=== PATIENT | female | born 1960 | race Caucasian/White ===

== ENCOUNTER 2020-02-22 22:09 | Inpatient (IN) | payer OTHER ==
[~2020-02-22] VITALS: Ht 154.9 cm; Wt 52.3 kg
[2020-02-22 22:45] VITALS: BP 138/74
[2020-02-22] MEDS ORDERED: C-10001000 MG PO (22:59)
[2020-02-22] MEDS ORDERED: PROAIR HFA8.5 GM INH (22:59)
[2020-02-22] MEDS ORDERED: TESSALON PERLE100 MG PO (23:04)
[2020-02-22] MEDS ORDERED: WELLBUTRIN SR200 MG PO (23:04)
[2020-02-22] MEDS ORDERED: CALCIUM CITRAT200 MG PO (23:05)
[2020-02-22] MEDS ORDERED: VALIUM2 MG PO (23:05)
[2020-02-22] MEDS ORDERED: MAG-OXIDE400 MG PO (23:06)
[2020-02-22] MEDS ORDERED: DAILY VITE1 EACH PO (23:07)
[2020-02-22] MEDS ORDERED: ZYPREXA2.5 MG PO (23:08)
[2020-02-22] MEDS ORDERED: VITAMIN A8000 UNI1 PO (23:08)
[2020-02-22] MEDS ORDERED: VITAMIN B-6100 MG PO (23:08)
[2020-02-22] MEDS ORDERED: ZINC50 M2 PO (23:09)
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
--- NOTE | 2020-02-23 03:34 | NUR ---
PATIENT CAME TO NURSE STATION AROUND 2AM TO SEE WHAT TIME IT WAS AND SHE WENT BACK TO HER ROOM. ON NEXT ROUNDS, PATIENT WAS IN ROOM LAYING ON A BLANKET ON THE FLOOR AND USED ANOTHER ONE TO COVER UP WITH. SHE STATES SHE WAS PRAYING. SHE FEELS SAFER WHEN SHE PRAYS AND THE PRAYER KEEPS SATAN FROM TAUNTING HER. PATIENT HAS STAYED ON FLOOR AND IS SLEEPING. RESPIRATIONS EVEN AND REGULAR. WILL CONTINUE TO MONITOR.
--- NOTE | 2020-02-23 03:58 | NUR ---
PATIENT CAME OUT IN ANDRE TO NURSE STATION AND THEN WALKED BACK TO HER ROOM. I WENT TO SEE IF SHE NEEDED ANYTHING. SHE WANTED TO KNOW WHAT TIME IT WAS. I TOLD HER IT WAS 0355. I ASKED HER IF SHE WAS GOING TO SLEEP ON THE FLOOR OR THE BED NOW. SHE STATES THAT SHE IS GOING TO DO A FEW EXERCISES AND THEN GO BACK TO HER BED. PATIENT REMAINS COOPERATIVE. WILL CONTINUE TO MONITOR.
--- NOTE | 2020-02-23 06:44 | NUR ---
PATIENT UP TO NURSES STATION SAYING THAT SOMEONE IS GOING TO DROP OFF SOME OF HER BELONGINGS. SHE HAS NOT SPOKEN WITH ANYONE TONIGHT. NO PHONE SEEN ON HER. TOLD PATIENT THAT VISITORS NOT ALLOWED AT THIS TIME BUT THAT SECURITY OR ER WILL CALL US IF SOMEONE IS HERE SO WE CAN COLLECT HER BELONGINGS. SHE WAS OK WITH THIS AND WENT BACK TO HER ROOM.
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
--- NOTE | 2020-02-23 12:20 | NUR ---
DIANA contacted Alex, pt's emergency contact, to obtain background hx on pt. No answer. DIANA lft msg. DIANA team will continue to follow pt during her stay on this unit.
[2020-02-23 19:33] VITALS: BP 119/84
[2020-02-23 21:00] VITALS: BP 119/84
--- NOTE | 2020-02-24 01:08 | NUR ---
PATIENT STAYED IN HER ROOM MOST OF EVENING AND THEN CAME OUT TO DINING ROOM FOR HS SNACK AND WALKED THE HALLS AND BACK AND FORTH FROM ROOM TO DINING ROOM. SHE IS RESTLESS. SHE REFUSED TO TAKE HER TRAZADONE PILL BUT IS NOT SLEEPING. SHE IS CALM, GUARDED AND A LITTLE PARANOID. SHE HAS BEEN KNEELING ON HER FLOOR AND PRAYING OFF AND ON. PATIENT IS NOT SLEEPING. SHE IS DENYING SI/HI/AVH. SHE STATES SHE IS NOT HEARING VOICES OR SATAN TALKING TO HER. SHE APPEARS SAD AND WITHDRAWN. CONTINUING TO MONITOR. SHE DENIES PAIN. VSS. ROUTINE ROUNDING. PT DID SIT IN RECLINER IN DAYROOM TO REST,
--- NOTE | 2020-02-24 03:48 | NUR ---
PATIENT HAS BEEN UP WALKING THE HALLS. STANDING IN THE ANDRE JUST STARING AND PRAYING ON ALL 4 IN THE ANDRE. I HAD TO ASK HER TO MOVE TO HER ROOM TO PRAY ON THE FLOOR SO PEOPLE WON'T TRIP OVER HER. PT IS COMPLIANT. SHE LOOKS SO SAD. SHE REFUSES TO TALK MUCH AND STATES SHE IS FINE AND NOTHING IS WRONG. SHE FEELS SAFER BEING AROUND PEOPLE THEN BEING ALONE IN HER ROOM. SHE CONTINUES TO JUST WANDER. SHE HAS NOT SLEPT MUCH AT ALL TONIGHT AND APPEARS MAYBE SHE IS TOO AFRAID TO SLEEP. SHE STILL DENIES SI/HI/AVH.
[2020-02-24 07:30] VITALS: BP 122/87
--- NOTE | 2020-02-24 16:21 | NUR ---
Lying on prone in semi kneeling position at side of bed. Compliant with sitting on bed for assessment. Alert and orientated X4. Initially refused breakfast but then requested meal about 20 min later. Initially refused all meds except risperidone but then requested olanzapine, buspar. Later requested risperidone and diazepam. Gave meds. Spoke with Dr. Goemz about noncompliance with some meds and request for diazepam. Diazepam 2 mg PO prn ordered. Denies SI/HI. Breath sounds clear t/o. Reg HR auscultated. Color pink with brisk capillary refill and palpable peripheral pulses. Independent with voiding. Brown liquid stool per ostomy bag, stoma pink. Regular gait. Frequently praying on floor in hallway and room.
[2020-02-24 20:04] VITALS: BP 127/98
--- NOTE | 2020-02-25 05:38 | NUR ---
Assumed care of pt @ 1900. Pt calm et cooperative this shift. Took medications whole without difficulty. Ambulates the halls ad rogelio with steady gait. Pt often sitting on the floor in the act of prayer throughout the shift. Pt kept to self most of shift et did not socialize with peers even when she was in the dayroom. VSWNL. Health assessment with no abnormalities noted at present time. Denies SI/HI. Currently resting in bed with eyes closed. Will continue to monitor per protocol.
[2020-02-25 07:26] VITALS: BP 117/95
--- NOTE | 2020-02-25 09:27 | NUR ---
0700 ASSUMED CARE OF PATIENT, PATIENT AWAKE IN ROOM AT THAT TIME. PATIENT ATE BREAKFAST THEN BACK TO ROOM. 0850 PATIENT TAKEN MEDS WHOLE WITHOUT DIFFICULTY. PATIENTS GOAL FOR THE DAY IS TO GET HER HEAD STRAIGHT. PATIENTS CONCERN IS TO TALK WITH SW TODAY. PATIENT DENIES SI/HI/AH/VH AT THAT TIME. PATIENT DENIES ANXIETY/DEPRESSION. PATIENT OBSERVED KNEELING ON FLOOR WHEN DEVELOPMENT CONSULTANT ENTERED ROOM. DENIES OTHER NEEDS. WILL CONTINUE TO OBSERVE.
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
--- NOTE | 2020-02-25 14:13 | NUR ---
DIANA received a call from [facility] with [facility] denying pt's referral. DIANA contacted [facility] and talked to Emerald about pt. She said they did not have beds, but wanted DIANA to send the referral for her to review. DIANA contacted [facility] and left a msg for Jennifer to contact DIANA.
--- NOTE | 2020-02-25 15:53 | NUR ---
PATIENT MEDITATING WHILE AMBULATING THE HALLS, DENIES NEEDS AT THIS TIME. DENIES SI,HI,AH,VH. WILL CONTINUE TO OBSERVE
[2020-02-25 19:13] VITALS: BP 109/82
[2020-02-25 23:11] VITALS: BP 109/82
--- NOTE | 2020-02-25 23:35 | NUR ---
PATIENT HAS BEEN QUIET TONIGHT. SHE WALKED THE ANDRE EATING HER HS SNACK OF ICECREAM. SHE DOES ANSWER QUESTIONS WHEN ASKED. PATIENT ALSO DID COME AND ASK FOR A GOWN AND SCRUB PANTS TO SLEEP IN TONIGHT. SHE ALSO REQUESTED A NEW PAIR OF TREAD SOCKS. PATIENT HAS A COLOSTOMY THAT IS PATENT AND WORKING AND SHE IS INDEPENDENT WITH THE CARE OF THIS. IT IS INTACT ON RIGHT OF ABDOMEN. PATIENT DENIES SI/HI/AVH. SHE HAS BEEN APPROPRIATE TONIGHT. SHE DID SPEND TIME IN HER ROOM ALOT THIS EVENING. SHE PRAYS AND EXERCISES. SHE IS SLEEPING AT THIS TIME. SHE DID NOT WANT HER TRAZADONE THIS EVENING. SHE APPEARS LUCID AND CALM. WILL CONTINUE TO MONITOR FOR STATUS AND SAFETY OF PATIENT.
--- NOTE | 2020-02-26 02:15 | NUR ---
PATIENT GOT UP AND WALKED OUT TO DINING ROOM TO CHECK THE TIME AND WAS WALKING BACK TO ROOM. ASKED HER IF SHE NEEDED SOMETHING TO HELP HER SLEEP. SHE SAID NO. I ASKED IF SHE WAS FEELING ANXIOUS OR SCARED AND SHE SAID SHE WAS NOT. SHE DID NOT WANT ANY MEDS. SHE STATES SHE WAS JUST CHECKING THE TIME. PATIENT BACK IN BED NOW.
--- NOTE | 2020-02-26 11:45 | NUR ---
SW spoke with admissions and sent referrals to [facility] and [facility]. SW resent referral to [facility] per Emerald's request. SW team will continue to follow pt during her stay on this unit.
--- NOTE | 2020-02-26 12:58 | NUR ---
DIANA had a 1-1 with pt. Pt believes that when she called [facility] concerning her appt she had scheduled today, she said she believed Ryan was doing something weird with the phone. SW assured her that even Ryan doesn't know she is here and that she is in a protected unit. Pt appeared surprised and perplexed by DIANA statement. She then chose to remove herself and think about what DIANA said. SW team will continue to follow pt during her stay on this unit.
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
[2020-02-26 19:42] VITALS: BP 139/90
--- NOTE | 2020-02-26 22:59 | NUR ---
Care assumed of patient at 1915: Patient seated on her bed in her room at start of shift. Patient holding hands in prayer position and rocking back and forth. Patient responded to name being called by nurse. Interactive with nurse, however, withdrawn to her room thus far this shift. Patient not visualized interacting with other peers this shift. Patient alert and oriented x4. Denies pain or discomfort. Denies SI/HI/AH/VH. No s/s of hallucinations observed. Patient appears to be delusional at times. Patient responding clearly to questions at times, then at times speaks with a whisper, rambling, disorganized speech. Patient walked to dayroom for HS snack then quickly retired to her room. Patient observed to be walking around with a pillow case over her head. When asked why she was wearing a pillow case, patient had quiet, disorganized speech but did understand something to the effect about not knowing when she will get her next hair cut. However, hair is buzz cut at this time. Patient requested PRN Trazodone to help her sleep. Provided with HS medication. Took HS medication whole without difficulty. Ate 100% HS snack. Patient resting quietly in bed at this time.
[2020-02-27 08:29] VITALS: BP 123/77
--- NOTE | 2020-02-27 10:23 | NUR ---
ASSUMED CARE AT 0700 THIS MORNING. PT. SITTING IN THE DINING ROOM COVERING HER HEAD WITH A PILLOW CASE. WHEN BREAKFAST, SHE LAYED HER HEAD ON THE TABLE AND DID NOT EAT. AT ABOUT 0930 SHE ASKED THIS RN WHEN SNACKS ARE BECAUSE SHE IS HUNGRY. SHE WAS REMINDED THAT SHE DID NOT EAT HER BREAKFAST. WHEN THIS RN PRESENTED HER MEDICATIONS TO HER, SHE ONLY WANTED TO TAKE "ONE PILL". SHE WAS REMINDED WHAT ALL THE MEDICATIONS WERE FOR. AFTER A BIT SHE TOOK ALL HER MEDICATIONS. SHE HAS BEEN WALKING AROUND THE UNIT WITH A PILLOW CASE ON HER HEAD ALL MORNING. HER MOOD IS DEPRESSED AND HER AFFECT IS FLAT.
[2020-02-27 10:27] VITALS: BP 123/77
--- NOTE | 2020-02-27 12:14 | NUR ---
DIANA spoke with Meenakshi from [facility]. Meenakshi informed they will denie Pt due to having no vacancies.
--- NOTE | 2020-02-27 12:43 | NUR ---
New referrals sent to [facility] and [facility].
[2020-02-27 19:50] VITALS: BP 134/97
--- NOTE | 2020-02-27 21:09 | NUR ---
Care assumed of patient at 1915: Patient kneeling on a towel on her floor in her room at start of shift. Patient had several papers with random hand written words on them surrounding her. Patient stated that she was studying the Jehovah'[employer] Witness mandaeism and praying. Patient avoiding eye contact. Seemed a bit irritable about nursing assessment needing to be completed. Nurse offered to come back 15 minutes later, patient stated "just get it over with, please". Patient used her manners but did appear irritated. Patient alert and oriented x4. Denies SI/HI/AH/VH. Was able to report that she has not had "bad thoughts" and feels safe. No specific delusional or paranoia behaviors observed. Bizarre and eccentric at times. Patient denies pain or discomfort. Took HS medication whole without difficulty. Patient observed taking HS snack to her room. Patient asked to eat in dayroom only. Patient somewhat frustrated with rule but was compliant and went to the dayroom. Ate 100% HS snack. Patient did request PRN Trazodone to assist her in sleeping. Patient denies anxiety and depression. Patient retired to bed and is laying quietly in bed at this time.
[2020-02-28 07:41] VITALS: BP 112/82
[2020-02-28 09:18] VITALS: BP 112/82
--- NOTE | 2020-02-28 10:27 | NUR ---
1025 RESUMMED CARE FROM OVERNIGHT SHIFT THIS AM, PATIENT IN DAY ROOM WITH A BLANKET OVER HER HEAD. PATIENT ATE BREAKFAST TOOK MEDICATION WITHOUT INCIDENCE. PATIENT DENIES SI/HI/AH/VH AT PRESENT PATIENT SUSPIOUS AND IS WITH DRAWN. PATIENTS ABDOMEN SOFT ROUND BOWEL SOUNDS PRESENT LUNGS CLEAR. PATIENT IN ROOM IN PRAYING POSITION ON FLOOR IN ROOM. PATIENT DOES NOT INTERACT WITH OTHER PATIENTS. WILL CONTINUE TO MONITOR PATIENT FOR BEHAVIORS AND SAFETY.
--- NOTE | 2020-02-28 11:49 | NUR ---
DIANA spoke with admissions at [facility]. They asked for information concerning Pt's income, stating Pt needs at least $1568 per month income to afford a bed in the facility. DIANA confirmed with Pt income is $770 per month and [facility] of this information.
[2020-02-28 19:18] VITALS: BP 116/82
--- NOTE | 2020-02-28 20:07 | NUR ---
Assumed care of patient at change of shift. She is in bed with HOB elevated and is reading her bible. She is alert and oriented x 3. She was unable to express knowledge of discharge plans. She continues to complain of satan bothering her. She denies any hallucinations. She denies hearing satan talking to her. She has blanket on the floor to kneel upon when praying. Colostomy intact with soft light brown stool noted. Pt. given new ostomy supplies per her request so that she may change bags. Pt. completed change easily.
--- NOTE | 2020-02-28 21:14 | NUR ---
Pt. took po medications whole with water. She requested and was given Trazadone PRN for sleep. No coughing or choking noted after swallowing. Colostomy intact after patient changed bag. She is currently in bed laying on her side covered with sheet. Respirations even and non-labored. No signs or symptoms of distress noted.
[2020-02-28 23:49] VITALS: BP 116/82
[2020-02-29 03:35] VITALS: BP 116/82
--- NOTE | 2020-02-29 06:37 | NUR ---
Pt. is awake and kneeling on floor in prayer. She has a blanket and a pillowcase draped over her back and head. Labs were drawn and pt. tolerated well.
[2020-02-29 06:55] LABS: ABSOLUTE NEUTROPHILS 2.9 thou/uL (1.4-8.2); BASOPHILS 1.4 % (0.0-2.0); EOSINOPHILS 2.7 % (0.0-3.0); HEMATOCRIT 41.5 % (37.0-47.0); LYMPHOCYTES 38.8 % (24.0-44.0); MCH 31.6 pg (26.0-34.0); MCHC 33.6 g/dL (28.0-37.0); MCV 93.9 fL (80.0-100.0); MONOCYTES 8.3 % (1.0-8.0); PLATELET COUNT 305 thou/uL (150-400); POLYS 48.8 % (36.0-66.0); RBC 4.42 mil/uL (4.20-5.00); RDW 13.3 % (10.5-14.5); WBC 5.9 thou/uL (4.0-11.0)
[2020-02-29 07:19] LABS: ALBUMIN 3.5 g/dL (3.4-5.0); CALCIUM 9.4 mg/dL (8.5-10.1); CREATININE 0.8 mg/dL (0.6-1.0); POTASSIUM 3.8 mmol/L (3.5-5.1); TOTAL BILIRUBIN 0.5 mg/dL (<0.1-1.0); TOTAL PROTEIN 6.7 g/dL (6.4-8.2)
[2020-02-29 07:32] VITALS: BP 114/86
[2020-02-29 07:40] LABS: TSH 0.549 uIU/mL (0.358-3.740)
--- NOTE | 2020-02-29 09:45 | NUR ---
Assumed care at 0700. Pt. up for breakfast with linens draped over her head and body. She sat by herself, not conversing with peers. She denied physical issues. She was compliant with medications. Each med was named and purpose discussed. Pt. is oriented x 3. She denies SI/HI/AH/VH.
[2020-02-29 10:56] LABS: FOLIC ACID 60.4 ng/mL (8.6-58.9)
--- NOTE | 2020-02-29 16:26 | NUR ---
Pt. has made specific requests for lunch and dinner today. In 1 to 1 interaction later in afternoon she verified she was not having AH/VH and that when she did she had learned to pray to be free of them. She abruptly ended the conversation stating that she was "making a report for the police and wanted to complete it."
[2020-02-29 19:18] VITALS: BP 129/94
[2020-03-01 05:39] VITALS: BP 129/94
--- NOTE | 2020-03-01 05:47 | NUR ---
Pt. had interrupted sleep. He came out to day room x 4 throughout night. Each time he would come to day room, sit on couch for approximately 10 - 15 minutes and then return to his room. When asked if he was ok he stated yes. When asked if he needed anything he stated no. No signs or symptoms of pain or distress noted.
--- NOTE | 2020-03-01 06:22 | NUR ---
Pt. is awake this am and has come to day room. Gait is hurried and steady. She is making multiple requests for different things. She wants a long pencil that is sharpened and also requested a new pair of brown socks. She has now proceeded to day room where she is sitting in a recliner. She has no complaints and no signs or symptoms of pain or distress is noted.
[2020-03-01 07:19] VITALS: BP 107/71
[2020-03-01 13:10] VITALS: BP 107/71
--- NOTE | 2020-03-01 13:16 | NUR ---
ASSUMED CARE AT 0700 THIS MORNING. PT. ROBERTOUSLY HAS PILLOW CASE ON HER HEAD TO COVER IT SO SHE CAN "DO HER PRAYERS". SHE WAS NOTED TO BE IN HER ROOM MUCH OF THIS MORNING ON HER KNEES ON A TOWEL SAYING HER PRAYERS. NO NEW PROBLEMS NOTED OR VOICED. SHE TOOK HER MEDICATIONS WITHOUT PROBLEMS TODAY EXCEPT SHE REFUSED HER BUPROPION HCL THIS MORNING. DR. COLORADO NOTIFIED. SHE STATED, "I DON'T NEED THAT MEDICATION".
--- NOTE | 2020-03-01 13:23 | NUR ---
DIA[facility] contacted both [facility] about [facility]errals sent on pt's behalf. Santiago with [facility] said pt does not make enough to cover living expenses. DIANA left a msg with Yen with [facility] asking for a return call. SW team will continue to follow pt during her stay on this unit.
[2020-03-01 19:45] VITALS: BP 106/70
[2020-03-01 19:48] VITALS: BP 106/70
--- NOTE | 2020-03-02 01:10 | NUR ---
PATIENT HAS STAYED TO HERSELF USUAL. SHE DID HAVE HS SNACK AND WALKED THE HALLS AND THEN STAYED IN HER ROOM SINCE 2029. SHE DENIES PAIN. HER COLOSTOMY IS INTACT AND PATENT. PT CONTINUES TO CARE FOR IT. PT IS A/O X 4. SHE DENIES SI/HI/AVH. SHE HAS BEEN CALM AND COOPERATIVE. SHE DENIES PAIN. SHE TOOK HER MEDS WHOLE WITH WATER. SHE IS SLEEPING AT THIS TIME. BED IN LOW POSITION. ROUTINE ROUNDS TO ASSESS FOR STATUS AND SAFETY OF PATIENT. WILL CONTINUE TO MONITOR.
--- NOTE | 2020-03-02 02:56 | NUR ---
PATIENT WOKE UP AND WALKED OUT TO DINING ROOM TO SIT AND PRAY SITTING AT A TABLE. SHE REFUSED ANY MED SUCH TRAZADONE OR DIAZEPAM TO HELP HER SLEEP. SHE DENIES ANXIETY AND STATES SHE HAS SLEPT ENOUGH. PATIENT IS WRITING ON PAPER AT THE TABLE IN THE DINING ROOM. SHE HAS COME OUT AT 2 DIFFERENT TIMES WITH CLOTHES THAT SHE WANTS WASHED. THEY ARE WASHING AND SOME IN DRYER WAITING FOR ONES IN WASH TO FINISH. SHE ASKED ANOTHER NURSE FOR NEW NAME AND ALLERGY BANDS BECAUSE THE ONE'S SHE HAS ON HAVE BEEN ON FOR A LONG TIME. I PLACED NEW ONES ON HER. SHE REQUESTED A LONG PENCIL WITH AN ERASER AND I TOLD HER NO AND THAT WE ONLY HAVE THE SMALL PENCILS FOR USE RIGHT NOW. SHE TOOK THE SMALL PENCIL TO USE. PATIENT DOES NOT WANT TO TALK ABOUT ANYTHING AND CONTINUES TO STAY TO HIMSELF.
[2020-03-02 08:29] VITALS: BP 138/92
--- NOTE | 2020-03-02 12:41 | NUR ---
Up ambulating in halls. Calm and compliant. Alert and orientated X4. States she is not having any anxiety. Denies SI/HI. Kneeling at side of bed praying. States her goal today is to focus on prayer. Breath sounds clear t/o, bilaterally equal. Regular HR auscultated. Color pink with brisk capillary refill and palpable peripheral pulses. No edema noted. Independent with voiding. Active bowel sounds over soft, flat abdomen. Ostomy bag intact per R abdomen. Stoma pink with brisk capillary refill. Regular, steady gait.
[2020-03-02 19:45] VITALS: BP 137/101
[2020-03-02 21:33] VITALS: BP 99/73
--- NOTE | 2020-03-03 05:35 | NUR ---
Assumed care of pt @ 1900. Pt calm et cooperative this shift. Refused medication this shift which just consisted of Vitamin C. Ambulates the halls ad rogelio with steady gait. VSWNL after repeat testing of initially elevated B/P. Health assessment with no abnormalities noted at present time. Isolated in room most of shift. Pt would occasionally come out of room to ambulate to dayroom et then back to room again. Currently restin in bed with eyes closed. Will continue to monitor per protocol.
[2020-03-03 07:48] VITALS: BP 118/85
--- NOTE | 2020-03-03 11:06 | NUR ---
Yesterday, DIANA received a vm from Yen with [facility] stating that she "cannot meet pt's needs." without any other explanation. DIANA contacted [facility] and left a msg asking Genet, their medical care administrator, to contact DIANA about pt so she can give her hx on pt. DIANA was told in tx team that pt said she wants to reside at the [facility]. DIANA left a msg for Meenakshi the admin of [facility] at the [facility]. SW team will continue to follow pt during her stay on this unit.
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
--- NOTE | 2020-03-03 14:52 | NUR ---
Assess for length of stay on [facility] for schizophrenia. Pt walking halls at time of visit. States has really enjoyed the meals and eats fine (stated "follow the food pyramid"). [id number] wt is up 7 lb and BMI now 20.8. On B6 and MVI supplementation. Orders from alternative menu. Low nutrition risk
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
[2020-03-03 19:48] VITALS: BP 148/99
[2020-03-03 21:15] VITALS: BP 132/88
[2020-03-03 22:12] VITALS: BP 132/88
[2020-03-03 22:15] LABS: URINE BILIRUBIN NEGATIVE (Negative); URINE BLOOD NEGATIVE (Negative); URINE CLARITY CLEAR; URINE COLOR YELLOW; URINE GLUCOSE-RANDOM* NEGATIVE (Negative); URINE KETONES NEGATIVE (Negative); URINE NITRITE-REFLEX NEGATIVE (Negative); URINE PROTEIN (DIPSTICK) NEGATIVE (Negative); URINE UROBILINOGEN 0.2 E.U./dl (0.2-1.0)
[2020-03-03 22:16] LABS: URINE LEUKOCYTES-REFLEX 2+ (Negative)
[2020-03-03 22:25] LABS: BACTERIA-REFLEX 1-9 Few /HPF (None Seen); CASTS None Seen /LPF (None Seen); CRYSTALS None Seen /LPF (None Seen); SQUAMOUS 0-3 Few /LPF (0-3); URINE WBC-REFLEX 6-15 Few /HPF (0-5)
[2020-03-03 22:26] LABS: URINE RBC None Seen /HPF (0-2)
--- NOTE | 2020-03-04 03:51 | NUR ---
PATIENT STAYS TO HERSELF MOST OF TIME. SHE WAS UP FOR A TREAT AND BACK TO ROOM WHERE SHE PRAYS AND EXERCISES. PATIENT'S DIASTOLIC BP WAS UP TO 99 AROUND 1900. PT DENIES ANXIETY AND APPEARS CALM BUT SHE HAS NOT BEEN SLEEPING AT NIGHT MUCH. SHE STATES SHE SLEEPS SOME DURING THE DAY. SHE REFUSED HER VALIUM OR TRAZADONE. SPOKE WITH HER ABOUT THE NEED TO BE ABLE TO SLEEP WELL AT NIGHT TO HELP HER IN HER TREATMENT HERE. SHE VOICED UNDERSTANDING BUT FEELS SHE IS OK. PATIENT CAME OUT OF ROOM AT MIDNIGHT AND HAS BEEN SLEEPING IN A RECLINER IN DINING ROOM SINCE THEN. HER BP WAS RECHECKED LATER AND DIASTOLIC WAS DOWN TO 88. PT DENIES PAIN. 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 PATIENT IS INDEPENDENT IN CARING FOR THIS. PHYSICAL ASSESSMENT WITHIN NORMAL LIMITS. CONTINUING TO MONITOR.
--- NOTE | 2020-03-04 04:05 | NUR ---
PT WENT BACK TO HER ROOM AND THEN CAME TO NURSE STATION TO ASK THIS NURSE TO WASH A SWEATER AND PAIR OF JEANS FOR HER. PLACED THEM IN WASHER FOR HER. ASKED IF SHE HAD ANY MORE SHE NEEDED WASHED AND SHE RESPONDED NO. PATIENT UP IN BATHROOM WASHING FACE AND BRUSHING TEETH. SHE HAS A BLANKET ON THE FLOOR THAT SHE SITS ON TO PRAY AND COVERS HER HEAD A BAH WITH ANOTHER BLANKET WHEN PRAYING. PT STAYING TO HERSELF AND DOESN'T LIKE TO TALK MUCH. CONTINUING TO MONITOR.
--- NOTE | 2020-03-04 10:13 | NUR ---
DIANA received a request from pt to speak to her; pt told the nursing unit coordinator that she has a ride downstairs and is ready to go. DIANA spoke with pt and asked her if that was true, and pt said yes. She said that her [employer] paper [employer] supervisor Mary and the police were here to pick her up, and [facility] has a place for her to live. SW explained that she needed to confirm that with Mary. Pt said that she needs to call Mary first. DIANA provided an update to Dr. Gomez who said pt cannot discharge without a safe d/c plan, and that it may be "God" telling pt that she is ready to leave. DIANA contacted Mary. No answer. [place] [facility] [place]IA[place] team will continue to follow pt during her stay on this unit.
--- NOTE | 2020-03-04 14:31 | NUR ---
ASSUMED CARE OF THE PT AT 0700. PT REFUSED AM MEDS BC THE "DEVIL TOLD HER THEY WERE POISONED", PRAYED AND AT 11AM INSISTED ON TAKING MEDS. PT IS AMBULATORY. LUNGS ARE CLEAR, PT REFUSED TO HAVE PULSES CHECKED. NO C/O PAIN. EFUSES DAY ROOM OTHER THAN EATING. BED IN THE LOWEST POSITION AND TOWEL ON THE FLOOR FOR PT TO PRAY WILL CONTINUE TO MONITOR THE PT.
[2020-03-04 19:32] VITALS: BP 135/102
--- NOTE | 2020-03-05 04:15 | NUR ---
ASSESSMENT: PT REMAIN ALERT AND ORIENT TIMES THREE. DID NOT COME INTO DAYROOM DURING THIS SHIFT. PT STAYED IN HER ROOM "PRAYING". PT WALKED IN THE CORRIDOR AT APPROXIMATELY 0230. PT DENIED PAIN, SOB AND N/V. BP ELEVATED AT THE BEGINNING OF THE SHIFT. COLOSTOMY INTACT, PT MANAGE THE COLOSTOMY HERSELF, WILL ASK IF NEEDING ASSISTANCE. DID NOT DISROBE HERSELF THIS SHIFT. NO IDEAS OF HARMING SELF NOR OTHERS. SLOW PROGRESS TOWARDS DC GOALS, WILL CONTINUE TO MONITOR.
[2020-03-05 07:00] VITALS: BP 139/81
--- NOTE | 2020-03-05 14:45 | NUR ---
Awake and alert X4, praying at side of bed on floor. Calm and cooperative. Reg gait when ambulating. Denies SI/HI. States anxiety is 0/10. Color pink. No s/o distress. Refuses physical assessment. States her ostomy bag is intact w/o issues. Compliant with meds. Requesting snacks and toiletry items. When sitting at table she places pillowcase over her head and face isolating self from peers
--- NOTE | 2020-03-05 15:07 | NUR ---
DINAA contacted Meenakshi with Jace at the [facility] who said she is reviewing pt's referral. She also sent pt's referral to [facility]. DIANA team will continue to follow pt during her stay on this unit.
[2020-03-05 19:37] VITALS: BP 120/86
[2020-03-06 00:04] VITALS: BP 120/86
--- NOTE | 2020-03-06 04:33 | NUR ---
At the start of the shift patient was kneeling on floor with pillowcase over her head imitating a veil. Pt. has a flat affect and makes request for evening meds. Pt. is ambulating in hallway with quick but steady gait. NO signs or symptoms of pain or distress noted.
[2020-03-06 09:07] VITALS: BP 105/78
--- NOTE | 2020-03-06 09:18 | NUR ---
0700 ASSUMED CARE OF PATIENT. 0800 PATIENT IN DAYROOM EATING BREAKFAST. PATIENT DENIES PAIN, DENIES NEEDS AT THSI TIME. MEDICATIONS TAKEN WHOLE WITHOUT DIFFICULTY.
--- NOTE | 2020-03-06 17:36 | NUR ---
PATIENT HAS NOT ALLOWED ME TO ASSESS. PATIENT NORMAL BREATHING, COLOR PINK, DENIES NEEDS, DENIES PAIN, PATIENT REQUESTED COLOSTOMY BAG FOR SELF CARE AND REPLACEMENT. OBSERVED PATIENT PRAYING IN ROOM AND DAYROOM. AMB AT TIMES IN HALLWAY. DENIES SI/HI. WILL CONTINUE TO OBSERVE
[2020-03-06 19:17] VITALS: BP 128/88
--- NOTE | 2020-03-07 05:13 | NUR ---
Assumed care of pt @ 1900. Pt calm et cooperative this shift. Took medications whole without difficulty. Ambulates the halls ad rogelio with steady gait. Isolates in room or in hallways away from other patients most of shift. VSWNL. Health assessment with no abnormalities noted at present time. Denies SI/HI. Currently resting in bed with eyes closed. Will continue to monitor per protocol.
[2020-03-07 07:35] VITALS: BP 127/87
[2020-03-07 10:14] VITALS: BP 128/88
--- NOTE | 2020-03-07 10:20 | NUR ---
ASSWUMED CARE AT 0700 THIS MORNING. PT. UP, DRESSED HOSPITAL GOWN, AND ON THE UNIT WITH A BLANKET AROUND HER SHOULDERS. SHE IS DEPRESSED LOOKING. SHE DENIES SI/HI OR AVH. SHE TOOK HER MEDICATIONS WITHOUT PROBLEMS NOTED. SHE CONTINUALLY SITS DOWN IN THE DINING ROOM (WORKING ON AN ALTERNATIVE MENU), THEN GETTING UP WALKING AROUND AND THEN BACK TO HER SEAT. SHE IS DOING THIS REPEATEDLY. HER VOICED IS LOW TONE AND ONLY ANSWERS QUESTIONS. OTHERWISE SHE STAYS TO HER SELF, ISOLATING ON THE UNIT AT A TABLE BY HERSELF. DID NOT ACCEPT AN RT GROUP WHEN OFFERED.
--- NOTE | 2020-03-07 12:02 | NUR ---
Weekly RT Note Date of Admission: 02/22/2020 Date of Activity Therapy Assessment:02/25/2020 Activity Goal:Coping Skills Initial Goal:1:1, engagement in the milieu Weekly progress towards goal: Did not achieve Group participation level: NA due to COVID19 Behaviors observed: Wandering halls, pacing, writing and isolating herself away from peers and staff. Very minimal participation in small groups and 1:1 sessions. Plan: No change towards goal
[2020-03-07 19:39] VITALS: BP 122/80
--- NOTE | 2020-03-08 05:11 | NUR ---
ASSESSMENT: PT REMAIN ALERT AND ORIENT TIMES THREE. NO PACING THE CORRIDORS THIS SHIFT AND DID NOT VISIT THE DAY ROOM. SLEPT WELL DURING THE NIGHT. REQUESTED TORADOL AND DIAZEPAM EARLIER. MINIMAL AMT OF PRAYING ON KNEES NOTED. VSS, AFEBRILE. DENIES SI/HI. PLEASANT YET SECLUDED IN HER ROOM ALL NIGHT. SLOW PROGRESS TOWARDS DC GOALS, WILL CONTINUE TO MONITOR.
--- NOTE | 2020-03-08 09:12 | NUR ---
3151 HVAC SERVICE TECHNICIAN approached pt to make sure she was OK after it had been reported by Security that someone from [facility] had dialed 911. Marni was the only pt with a phone out. Pt was agreeable that she had called 911 but stated, "I was unable to reach the person I wanted to talk to." She explained that she had just spoken to her landlord about her belongings needing to be moved and had wanted to ask 911 to assist her with gathering/moving her belongings. HVAC SERVICE TECHNICIAN educated pt that 911 is an emergency number and should only be called in the event of a real emergency. Pt stated that she understand and that she will confide in staff the next time she needs assistance- i.e. the non emergency number to the police station.
[2020-03-08 09:18] VITALS: BP 134/77
--- NOTE | 2020-03-08 09:39 | NUR ---
DIANA received a call from Meenakshi Mccormick at the [facility] stating they can not meet her needs. .
[2020-03-08 19:41] VITALS: BP 123/86
[2020-03-08 22:00] VITALS: BP 123/86
--- NOTE | 2020-03-09 01:15 | NUR ---
Assumed care of patient this pm shift. Patient in good spirits sitting in her room and roaming the halls. Patient denies pain. Patient denies hi/si. Patient takes medications whole. Patient ambulates without assistance. Patient did not state any goals at this time. Patients assessment shows clear breath sounds, active bowel sounds, and s1 s2 heard with auscultation. Patient alert and oriented to time, place, person, and situation. We will continue to monitor per protocol.
[2020-03-09 07:48] VITALS: BP 103/62
--- NOTE | 2020-03-09 09:13 | NUR ---
PATIENT TOOK AM MEDS. STATES NO PAIN NO INCREASED ANXIETY. NO RESP DISTRESS. PATIENT LIKES TO STAY IN ROOM STAYS TO SELF.
--- NOTE | 2020-03-09 11:33 | NUR ---
OSTOMY CARE asked to see pt to assist w/ ostomy care, pt had urostomy pouch over stoma, pt has an ileostomy, pt cooperative and assisted in changing pouch to correct appliance, stoma pink viable budded, peristomal skin intact, loose mushy brown stool noted, new pouch hollsiter 2 piece cut to fit applied w/ adapt ring under wafer, extra supplies left at nurses station w/ chief of staff doctorTOMY Lo informed recommendations logan cut to fit pouch w/ adapt ring, change q3-4 days and prn chief of staff doctor aware
--- NOTE | 2020-03-09 12:33 | NUR ---
SW sent referrals for pt to [facility], [facility], [facility], [facility], [facility], and [facility]. DIANA will continue to follow pt during her stay on this unit.
[2020-03-09 19:34] VITALS: BP 140/93
--- NOTE | 2020-03-10 05:00 | NUR ---
03-09-20 CARE TRANSFERRED 1914. 1929 PT IN ROOM RESTING WITH EYE CLOSED, PT REQUESTED RN TO COME BE IN A LITLE BIT. 2039 PT AAOX4, CALM, COOPERATIVE DURING ASSESSMENT. PT DENIES SI/SH/HI/VAH AND ZERO PAIN AT THIS TIME. PT DID PRESENT A LITTLE ANXIOUS, WHEN ASKED ABOUT ANXIETY SHE REPORTED SHE IS FEELING A ANXIOUS AND REQUESTED HER PRN MEDICATION FOR ANXIETY AND SLEEP. PT HAD ZERO DIFFICUTES DURING CARRY OUT CLERK AND SHELF STOCKER. OF NOTE, PLEASE REFER TO NURSING INTERVENTIONS FOR MORE INFORMATION. ZERO ACUTE DISTRESS NOTED DURING ROUNDS.
[2020-03-10 09:37] VITALS: BP 131/90
--- NOTE | 2020-03-10 10:23 | NUR ---
Nutrition followup: pt admitted with schizophrenia to [facility] unit and seen per followup. Was initially sleeping during visit but then came out to find RD. Pt eating well, 50-100% of meals and states likes the meals, knows how to voice preferences, etc. Current weight up 7# from admit. Follow trends. Continues on B6, ascorbic acid and MVI supplementation. Low nutrition risk.
--- NOTE | 2020-03-10 11:47 | NUR ---
DIANA called multiple RCFs and sent referrals to [facility] [phone] and Demi [facility] [phone]. Will continue to send more referrals today.
--- NOTE | 2020-03-10 13:07 | NUR ---
DIANA sent a referral to [facility] [phone]
--- NOTE | 2020-03-10 13:32 | NUR ---
Dannielle sent a new referral to [facility] [phone]. [facility] is willing to consider but they do nt have an open room yet. They cost $1800 [facility] [phone].
--- NOTE | 2020-03-10 15:04 | NUR ---
REFUSED AM ZYPREXA STATING DID NOT TELL HER ABOUT INCREASE IN DOSAGE AND IT WAS "TOO MUCH" TOOK 2.5 MG ONLY. MINIMALLY VERBAL-APPROACHING STAFF ONLY WITH VARIOUS CHANGES IN DIET-WITHDRAWN TO ROOM AND STRUCTURES FREE TIME KNEELING ON FLOOR PRAYING OR MEDITIATING. DENIES C/O PAIN/DISCOMFORT. REMAINS RELIGIOUSLY PREOCCUPIED SPEECH SOFT,LOW DIFFICULT TO UNDERSTAND. DENIES SI/SH/HI. NO NOTED OR REPORTED A/V HALLUCINTATIONS BUT CONTINUES TO STATE WHAT BROUGHT HER HERE WAS WITCHCRAFT. GAIT STEADY WITHOUT ASSISTIVE DEVICES,
--- NOTE | 2020-03-10 15:46 | NUR ---
NO VERBAL RESPONSES TO QUESTIONS ASKED TODAY-FLAT AFFECT. GAIT STEADY WITHOUT ASSISTIVE DEVICES. COMPLIENT WITH TAKING MEDICATIONS CRUSHED IN APPLESAUCE. NO REPORTED PAIN OR S/S OF DISCOMFORT NOTED WITH MOVEMENT. REQUIRES ASSIST WITH EATING WILL FREQUENTLY GET UP FROM TABLE AND WALK AWAY FROM FOOD. TOILETS SELF AND HAS BEEN PROMPTED Q 2-4 HOURS-VOIDED X2 SO FAR THIS SHIFT WITHOUT INCONTINENCE. WILL OCCASSIONALLY NEED REDIRECT IF WANDERS INTO PEERS ROOM BUT REDIRECTS WITHOUT DIFFICULTY.
[2020-03-10 19:42] VITALS: BP 103/64
[2020-03-10 20:45] VITALS: BP 103/64
--- NOTE | 2020-03-11 04:56 | NUR ---
Assumed pt care at 1900. Pt A/OX4, VSS. Denies any SI/HI on assessment. Stayed in room this shift. Up ad rogelio w/o any difficulties. Denied pain on assessment, requested for Trazadone/Valium at HS and has been resting well though the night. Colostomy intact. Encouraged pt to voice needs as needed. Will continue to monitor pt.
[2020-03-11 07:51] VITALS: BP 128/83
--- NOTE | 2020-03-11 11:29 | NUR ---
SW sent a referral to pt to [facility].
--- NOTE | 2020-03-11 13:26 | NUR ---
DIANA attended an interview with pt via video chat with Jose from [facility]. Pt and [facility] decided that placement there would be good for her. DIANA contacted [employer] and arranged transportation for Sunday @10 am to [address], [place] [address]. Trip # is [id number] SW team will continue to follow pt during her stay on this unit.
--- NOTE | 2020-03-11 17:33 | NUR ---
ASSUMED CARE OF PATIENT AT THAT TIME. PATIENT AMB WELL WITH STEADY GAIT TO DAYROOM FOR MEALS. NO C/O PAIN, DENIES SI/HI. PATIENT REQUESTED CLEAN GOWN AND PANTS EARLIER. PATIENT TAKES CARE OF OWN COLOSTOMY CARE. PATIENT VIEWED PACING IN ANDRE WITH HEAD DOWN PRAYING AT TIME. PATIENT HAS A FLAT AFFECT AND IS CALM AND QUIET. PATIENT SPENDS MOST OF HER TIME IN ROOM ISSOLATING. WILL CONTINUE TO OBSERVE.
--- NOTE | 2020-03-12 05:42 | NUR ---
Assumed care of pt @ 1900. Pt calm et cooperative with pleasant demeanor this shift. Took medications whole without difficulty. Ambulates the halls ad rogelio with steady gait. Continues to pray in various positions in various locations around the unit. VSWNL. Health assessment with no abnormalities noted at present time. Denies SI/HI. Currently resting in bed with eyes closed. Will continue to monitor per protocol.
[2020-03-12 07:55] VITALS: BP 134/89
--- NOTE | 2020-03-12 11:48 | NUR ---
COME OUT OF ROOM BRIEFLY TO EAT BREAKFAST BUT NO NOTED INTERACTION WITH STAFF OR PEERS. MARILYNN SI/SH/HI. DENIES ACUTE ANXIETY RATING 0 ON 1-10 SCALE. RATES DEPRESSION 0 ON 1-10 SCALE, FLAT AFFECT. MINIMALLY VERBAL-WILL ANSWER QUESTIONS ASKED ONLY. POOR EYE CONTACT. GUARDED. GAIT STEADY WITHOUT ASSISTIVE DEVICES. STRUCTURES TIME PACING IN HALLWAYS, KNEELING ON FLOOR PRAYING OR READING BIBLE.
[2020-03-12 19:27] VITALS: BP 151/96
[2020-03-12 21:30] VITALS: BP 134/89
--- NOTE | 2020-03-12 23:00 | NUR ---
Assumed care of patient this pm shift. Patient in good spirits reading her Bible and praying. Patient denies pain. Patient denies hi/si. Patient dressed in hospital attire, neat and clean. Patients assessment shows clear breath sounds, active bowel sounds, and s1 s2 heard with auscultation. Patient is continent of bowel and bladder. Patient takes medications whole. Patient is ambulatory. We will continue to monitor per hospital protocol.
[2020-03-13 07:39] VITALS: BP 136/95
--- NOTE | 2020-03-13 07:56 | NUR ---
Assumed care 0700. Pt. denies complaints. Goal isto read her Bible. No reported concerns or c/o pain. Denies SI/HI/AH/VH. In and out of her room with her Bible, walkling in the torres. Does not attempt to converse with peers. Sheislooking forward to going home on Sunday.
[2020-03-13 19:32] VITALS: BP 128/88
--- NOTE | 2020-03-14 04:44 | NUR ---
Assumed care of pt @ 1900. Pt calm et cooperative with [facility]. Ambulates the halls ad rogelio with steady gait. Pt was educated this shift on the purpose of her bed being in the lowest position due to the fact that the patient keeps raising her bed. Pt verbalized understanding. Patient requests PRN Diazepam et Trazadone on a regular basis for sleep. VSWNL. Health assessment with no abnormalities noted at present time. Denies SI/HI. Currently resting in bed with eyes closed. Will continue to monitor per protocol.
[2020-03-14 07:42] VITALS: BP 127/82
--- NOTE | 2020-03-14 14:20 | NUR ---
Assumed care 0700. She denies pain, SI/HI/AH/VH. She is religiously preoccupied reading her Bible while walking the halls. She prays on the floor frequently. She does not socialize with peers. Her voice is soft and quiet. Mood euthymic.
[2020-03-14 20:00] VITALS: BP 133/86
--- NOTE | 2020-03-15 04:59 | NUR ---
03-14-20 CARE TRANSFERED 1914 OBSERVED PT IN ROOM. 1999 PT AAOX2, SITTING IN DAY ROOM, CALM AND COOPERATIVE. PT DENIES ANY PAIN AND SI/SH/HI/VAH. OF NOTE, PLEASE REFER TO NURSING INTERVENTION FOR MORE INFORMATION. ZERO ACUTE DISTRESS NOTED THROUGH NURSING ROUNDS.
[2020-03-15 07:30] VITALS: BP 127/84
--- NOTE | 2020-03-15 10:06 | NUR ---
This am was found by me in the Day room waiting for her breakfast. She ate her breakfast most of her breakfast. I encouraged fluids. Lungs were clear upon osscultation. Pedal pulse regular and strong , no pedal edema noted. Usp, denied any constaption, stating her stool was semi soft. Appears intense at times walks in hallway reading her bible. Am medications were given, Usp did not participated in group exercise. 9 am zyprexa,1 5mg was refused of ordered 10 mg dose. I encourged her to reconsider and her answer was was "no". was made aware of this.
[2020-03-15 16:08] VITALS: BP 127/84
[2020-03-15] MEDS ORDERED: ACETAMINOPHEN325 M1 PO (17:14)
[2020-03-15] MEDS ORDERED: WELLBUTRIN SR100 MG PO ×2 (17:14→17:15)
[2020-03-15] MEDS ORDERED: TRAZODONE HCL50 MG PO (17:15)
[2020-03-15] MEDS ORDERED: DIAZEPAM 2MG TAB2 MG PO (17:15)
[2020-03-15] MEDS ORDERED: ZYPREXA 5 MG TAB5 M1 PO (17:15)
[2020-03-15] MEDS ORDERED: VITAMIN B-6100 MG PO (17:16)
[2020-03-15] MEDS ORDERED: THERA-M CAPLET1 EACH PO (17:17)
--- NOTE | 2020-03-15 17:30 | NUR ---
Marni walked the hallway a few times today and chose not to be part of tv. watching or group activities. Marni asked a few times about seeing the wound care nurse and if she could have colostemy bags when she leaves. A call was put in and I assured Marni that the call was made. Marni denies hearing any voices or seeing any any thing. Many times client looks very intensebut says shes ok.
[2020-03-15 19:50] VITALS: BP 130/88
--- NOTE | 2020-03-16 03:19 | NUR ---
- CARE TRANSFERED AT 1919 PT ON FLOOR WITH EYES CLOSED AND DARIO CAMACHO, RN KNOCKED ON DOOR AND PT REQUESTED RN TO COME BACK IN A FEW MINUTES, SHE WAS PRAYING. 1944 PT AAOX3, CALM AND COOPERATIVE, LOOKING FORWARD TO MOVING INTO [facility] BUT WAS CONCERNED ABOUT MAKING SURE SHE HAD ENOUGH COLOSTOMY BAGS, THIS WAS DISCUSSED DURING SHIFT REPORT AND THIS RN WILL RETURN REPORT TO AM RN MATERIAL MANAGEMENT AND WOUND CARE TEAM CURRENTLY CLOSED R/T . PT REQUESTED HER PRN MEDICATION AND SHE HAD ZERO DIFFICUTIES DURING MEDICATION ADMIN. OF NOTE, PLEASE REFER TO NURSING INTERVENTIONS FOR MORE INFORMATION. ZERO ACUTE DISTRESS NOTED DURING NURSING ROUNDS.
[2020-03-16 08:42] VITALS: BP 137/95
--- NOTE | 2020-03-16 09:15 | NUR ---
Pt was in the room geting ready for dicharge today. when asked her goal today Manri said her new home were she is going today. Marni said she was looking foward to meeting new people and reading her bible. Lungs were clear x2 upon ossciltation, pedal pulse strong and regular, Heart regular. Marni denies any constapation,denies hearing voices or seeing any visions or voices. AM medication taken with no complainsts.
--- NOTE | 2020-03-16 10:00 | NUR ---
Pt left via ambulation with staff to transport van. Pt verbaly understood d/c orders.
--- NOTE | 2020-03-16 10:14 | NUR ---
DIANA D/C note DIANA contacted Mary and her CSS cheese production supervisor Genet Molina and explained pt's discharge plan. They asked DIANA to fax discharge docs to [phone]. Jen explained pt will remain with [facility]. DIANA faxed pt's docs to fax number given. DIANA filed docs in pt's hospital file along with confirmation page. DIANA team will continue to follow pt during her stay on this unit.
--- NOTE | 2020-03-16 10:29 | NUR ---
Gave report to Fidencio Rodrigues at [facility]. He stated that they don't care for individuals with colostomy bag. Fidencio stated he is going to find out if they can admit her and call us back. Pt has extra colostomy bags with her and is able to care for self.
== END 2020-03-16 10:20 | DRG 885 ==
LOC: SBH 22:09
PROVIDERS: Internal Medicine; Psychiatry & Neurology Psychiatry; ADMIT Psychiatry & Neurology Psychiatry
DX: F20.9 Schizophrenia, unspecified (principal); Z93.3 Colostomy status; N39.0 Urinary tract infection, site not specified; F41.9 Anxiety disorder, unspecified; F32.9 Major depressive disorder, single episode, unspecified; B96.20 Unspecified Escherichia coli [E. coli] as the cause of diseases classified elsewhere; Z88.8 Allergy status to other drugs, medicaments and biological substances; Z98.42 Cataract extraction status, left eye; Z98.41 Cataract extraction status, right eye; Z87.891 Personal history of nicotine dependence; Z79.899 Other long term (current) drug therapy
CPT/HCPCS: 10880

== ENCOUNTER 2020-03-23 13:29 | Inpatient (IN) | payer OTHER | END 2020-03-29 13:15 | disposition home or self-care (01) | DRG 885 | LOC: ER 13:29 → EROBS 15:39 → SBH 16:31 | PROVIDERS: ADMIT Psychiatry & Neurology Psychiatry | DX: F20.9 Schizophrenia, unspecified (principal); R45.851 Suicidal ideations; I10 Essential (primary) hypertension; F32.9 Major depressive disorder, single episode, unspecified; Z79.899 Other long term (current) drug therapy; Z91.14 Patient's other noncompliance with medication regimen ==